=== PATIENT | female | born 1960 | race Two or more races ===

== ENCOUNTER 2023-03-04 12:00 | Outpatient (CLI) | payer OTHER | END 2023-03-04 12:07 | disposition home or self-care (01) | LOC: RAD 12:00 | PROVIDERS: ATTEND Orthopaedic Surgery | DX: M17.11 Unilateral primary osteoarthritis, right knee (principal) ==

== ENCOUNTER 2023-07-01 09:40 | Outpatient (CLI) | payer OTHER | END 2023-07-01 09:48 | disposition home or self-care (01) | LOC: MRI 09:40 | DX: M70.52 Other bursitis of knee, left knee (principal) | CPT/HCPCS: 73721 ==

== ENCOUNTER 2023-07-30 07:45 | Inpatient (IN) | payer OTHER ==
[2023-07-30 09:10] LABS: URINE APPEARANCE Clear; URINE BILIRRUBIN Negative (NEGATIVE); URINE BLOOD Negative; URINE COLOR Yellow; URINE GLUCOSE Negative (NEGATIVE); URINE LEUKOCYTE Moderate; URINE NITRATE Negative; URINE PROTEIN Negative (NEGATIVE); URINE UROBILINOGEN 0.2 E.U./dl
[2023-07-30 09:12] LABS: URINE BACTERIA 2528.7 uL (0.0-1933); URINE EPITHELIAL CELLS 65.2 uL (0.0-38.8); URINE RBC 13.7 uL (0.0-20.8); URINE WBC 110.6 uL (0.0-23.2)
[2023-07-30 09:28] LABS: HEMATOCRIT 40.8 % (36.0-45.00); HEMOGLOBIN 13.4 g/dL (12.0-15.00); MEAN CELL VOLUME 84.8 fL (80.00-100.00); MEAN CORPUSCULAR HEMOGLOBIN 27.8 pg (27.00-32.0); MEAN CORPUSCULAR HGB CONC 32.8 g/dl (32.0-36.0); PLATELET COUNT 227 K/uL (150-450); RED BLOOD COUNT 4.81 M/uL (4.00-6.00); RED CELL DISTRIBUTION WIDTH 14.9 % (11.5-14.5)
[2023-07-30 10:10] LABS: INR < 0.93; PROTHROMBIN TIME 9.8 SECONDS (9.0-11.5)
[2023-07-30 11:05] LABS: ALBUMIN 3.9 gm/dL (3.4-5.0); BILIRUBIN TOTAL 0.53 mg/dL (0.3-1.2); CREATININE SERUM 1.02 mg/dL (0.55-1.02); GFR 54.39; GLOBULINA 3.5 G/DL (2.4-3.5); POTASSIUM 4.46 mEq/L (3.5-5.1); TOTAL PROTEIN 7.4 gm/dL (6.4-8.2)
[2023-08-07 06:59] LABS: HEMATOCRIT 38.2 % (36.0-45.00); HEMOGLOBIN 12.6 g/dL (12.0-15.00); MEAN CELL VOLUME 83.5 fL (80.00-100.00); MEAN CORPUSCULAR HEMOGLOBIN 27.7 pg (27.00-32.0); MEAN CORPUSCULAR HGB CONC 33.1 g/dl (32.0-36.0); PLATELET COUNT 246 K/uL (150-450); RED BLOOD COUNT 4.57 M/uL (4.00-6.00); RED CELL DISTRIBUTION WIDTH 14.9 % (11.5-14.5)
[2023-08-08 06:57] LABS: HEMATOCRIT 36.3 % (36.0-45.00); HEMOGLOBIN 12.1 g/dL (12.0-15.00); MEAN CELL VOLUME 83.8 fL (80.00-100.00); MEAN CORPUSCULAR HGB CONC 33.4 g/dl (32.0-36.0); PLATELET COUNT 231 K/uL (150-450); RED BLOOD COUNT 4.33 M/uL (4.00-6.00); RED CELL DISTRIBUTION WIDTH 14.6 % (11.5-14.5)
[2023-08-08] MEDS ORDERED: NORFLEX100MG PO (12:08)
[2023-08-08] MEDS ORDERED: OXYC1TAB9 PO (12:09)
[2023-08-08] MEDS ORDERED: GABAPENTIN100 MG PO (12:09)
[2023-08-08] MEDS ORDERED: XARELTO10 MG PO (12:09)
== END 2023-08-08 14:54 | disposition home or self-care (01) | DRG 470 ==
LOC: SURG 08-06 06:30 → O/R 08-06 06:30 → SURG 08-06 07:45
PROVIDERS: ADMIT Orthopaedic Surgery; ATTEND Orthopaedic Surgery
PROC: 0SRD0JZ Replacement of Left Knee Joint with Synthetic Substitute, Open Approach (ICD-10-PCS; principal; 2023-08-06 09:45)
DX: M17.12 Unilateral primary osteoarthritis, left knee (principal); D62 Acute posthemorrhagic anemia; M85.662 Other cyst of bone, left lower leg

== ENCOUNTER 2023-11-11 12:25 | Outpatient (CLI) | payer OTHER ==
[~2023-11-11 12:25] MED LIST: GABAPENTIN100 MG PO; NORFLEX100MG PO; OXYC1TAB9 PO; XARELTO10 MG PO
== END 2023-11-11 12:28 | disposition home or self-care (01) ==
LOC: RAD 12:25
PROVIDERS: ATTEND Orthopaedic Surgery
DX: M25.561 Pain in right knee (principal); M25.562 Pain in left knee

== ENCOUNTER 2023-11-14 08:19 | Emergency (ER) | payer OTHER ==
[~2023-11-14] VITALS: Ht 157.5 cm; Wt 85.3 kg
[2023-11-14] MEDS ORDERED: ACID REDUCER20 M1 (08:25)
[2023-11-14] MEDS ORDERED: ACID REDUCER20 M1 PO (08:25)
[2023-11-14 09:15] LABS: HEMATOCRIT 40.2 % (36.0-45.00); HEMOGLOBIN 13.3 g/dL (12.0-15.00); MEAN CELL VOLUME 84.7 fL (80.00-100.00); PLATELET COUNT 279 K/uL (150-450); RED BLOOD COUNT 4.74 M/uL (4.00-6.00)
[2023-11-14 09:36] LABS: PH,URINE 5.5 (5.0-8.0); URINE APPEARANCE Cloudy; URINE BACTERIA 718.1 uL (0.0-1933); URINE BILIRRUBIN Negative (NEGATIVE); URINE BLOOD Large; URINE COLOR Dark Yellow; URINE EPITHELIAL CELLS 77.9 uL (0.0-38.8); URINE GLUCOSE Negative (NEGATIVE); URINE LEUKOCYTE Trace; URINE NITRATE Negative; URINE PROTEIN Trace (NEGATIVE); URINE RBC 312.7 uL (0.0-20.8); URINE WBC 33.8 uL (0.0-23.2)
[2023-11-14 09:40] LABS: INR 0.95; PARTIAL THROMBOPLASTIN TIME 30.8 SECONDS (22.0-34.0)
[2023-11-14 09:42] LABS: CALCIUM 9.6 mg/dL (8.5-10.1); CREATININE SERUM 1.12 mg/dL (0.55-1.02); GFR 48.82; POTASSIUM 3.66 mEq/L (3.5-5.1)
[2023-11-14] MEDS ORDERED: CEFTRIAXONE SODIUM 1,000 MG VIAL IM STA (11:00)
== END 2023-11-14 11:10 | disposition home or self-care (01) ==
LOC: ER 08:19
PROVIDERS: General Practice
DX: N93.8 Other specified abnormal uterine and vaginal bleeding (principal)
CPT/HCPCS: 36415; 76830; 96372; 99284; J0696

== ENCOUNTER 2024-05-13 08:38 | Outpatient (CLI) | payer OTHER ==
[~2024-05-13 08:38] MED LIST changes: +ACID REDUCER20 M1; +ACID REDUCER20 M1 PO
== END 2024-05-13 08:49 | disposition home or self-care (01) ==
LOC: RAD 08:38
PROVIDERS: ATTEND Orthopaedic Surgery
DX: M25.561 Pain in right knee (principal); M25.562 Pain in left knee

== ENCOUNTER 2024-10-06 08:35 | Outpatient (CLI) | payer OTHER | END 2024-10-06 08:45 | disposition home or self-care (01) | LOC: MAMO-SONO 08:35 | DX: N60.02 Solitary cyst of left breast (principal); N60.01 Solitary cyst of right breast; Z12.31 Encounter for screening mammogram for malignant neoplasm of breast ==

== ENCOUNTER 2024-12-10 08:39 | Outpatient (CLI) | payer OTHER | END 2024-12-10 08:44 | disposition home or self-care (01) | LOC: TOM 08:39 → MAMO-SONO 08:39 | DX: N60.01 Solitary cyst of right breast (principal); I10 Essential (primary) hypertension; D24.1 Benign neoplasm of right breast ==

== ENCOUNTER 2025-04-06 08:44 | Outpatient (CLI) | payer OTHER | END 2025-04-06 08:48 | disposition home or self-care (01) | LOC: RAD 08:44 | DX: M70.42 Prepatellar bursitis, left knee (principal) ==

== ENCOUNTER 2025-04-09 20:31 | Emergency (ER) | payer OTHER ==
[~2025-04-09] VITALS: Ht 157.5 cm; Wt 88.9 kg
[2025-04-09] MEDS ORDERED: KETOROLAC TROMETHAMINE 30 MG VIAL IV ONE (21:00)
[2025-04-09] MEDS ORDERED: 0.9 % SODIUM CHLORIDE 1,000 ML IV SCH (21:00)
[2025-04-09] MEDS ORDERED: CEFTRIAXONE SODIUM 1,000 MG VIAL IV ONE (21:00)
[2025-04-09 21:19] LABS: BASO % 0.4 % (0.1-1.2); EOS # 0.01 (0.04-0.54); EOS % 0.1 % (0.7-7.0); LYMPH # 1.08 (1.18-3.74); LYMPH % 8.9 % (19.3-53.1); MEAN PLATELET VOLUME 11.30 fl (9.4-12.4); MONO # 0.51 (0.24-0.82); MONO % 4.2 % (4.7-12.5); NEUT # 10.39 (1.56-6.13); NEUT % 86.1 % (34.0-71.1); RED CELL DISTRIBUTION WIDTH 14.2 % (11.6-14.4)
[2025-04-09 21:20] LABS: URINE APPEARANCE Turbid; URINE BILIRRUBIN Small (NEGATIVE); URINE BLOOD Large; URINE COLOR Orange; URINE GLUCOSE Negative (NEGATIVE); URINE KETONE Trace (NEGATIVE); URINE LEUKOCYTE Moderate; URINE NITRATE Negative; URINE UROBILINOGEN 1.0 E.U./dl
[2025-04-09 21:23] LABS: URINE BACTERIA 108.0 uL (0.0-1933); URINE CAST 3.92 uL (0.0-1.40); URINE EPITHELIAL CELLS 57.2 uL (0.0-38.8); URINE RBC 9112.9 uL (0.0-20.8); URINE WBC 147.6 uL (0.0-23.2)
[2025-04-09 21:35] LABS: URINE PROTEIN 100 (NEGATIVE)
[2025-04-09 22:12] LABS: ALT/SGPT 42.0 U/L (12-78); AST/SGOT 46.0 U/L (15-37); BILIRUBIN TOTAL 0.44 mg/dL (0.3-1.2); BUN CREA RATIO 10.0 (7.0-25.0); CREATININE SERUM 1.34 mg/dL (0.55-1.02); GFR 39.57; GLOBULINA 3.4 G/DL (2.4-3.5); GLUCOSE FASTING 155.0 mg/dL (65-100); OSMOLALITY SERUM 294.0 MOSM/KG (275-295)
== END 2025-04-10 02:04 | disposition home or self-care (01) ==
LOC: ER 20:31
PROVIDERS: General Practice
DX: N39.0 Urinary tract infection, site not specified (principal); R10.9 Unspecified abdominal pain
CPT/HCPCS: 36415; 74176; 96365; 96366; 99284; J0696; J1885; J7030

== ENCOUNTER 2025-07-09 07:48 | Outpatient (CLI) | payer OTHER | END 2025-07-09 07:50 | disposition home or self-care (01) | LOC: RAD 07:48 | DX: Z96.652 Presence of left artificial knee joint (principal) ==